=== PATIENT | female | born 1960 | race Caucasian/White ===

== ENCOUNTER 2019-07-08 12:22 | Emergency (ER) | payer OTHER ==
[~2019-07-08] VITALS: Ht 165.1 cm; Wt 83.9 kg
[~2019-07-08 12:22] MED LIST: BACTRIM DS TAB1 EACH PO; CEPHALEXIN 500500 M3; LISINOPRIL-HCT1 EAC2; SYNTHROID50 MCG PO; VICODIN 5-5001 EACH PO
[2019-07-08] MEDS ORDERED: BLOOD PRESSURE (12:37)
[2019-07-08] MEDS ORDERED: MOBIC15 MG PO (14:40)
[2019-07-08 14:57] VITALS: BP 150/84
== END 2019-07-08 14:58 | disposition home or self-care (01) ==
LOC: M.ERS 12:22
DX: S46.812A Strain of other muscles, fascia and tendons at shoulder and upper arm level, left arm, initial encounter (principal); I10 Essential (primary) hypertension; E03.9 Hypothyroidism, unspecified; Z88.1 Allergy status to other antibiotic agents; Z88.2 Allergy status to sulfonamides; W10.8XXA Fall (on) (from) other stairs and steps, initial encounter; Y93.89 Activity, other specified; Y92.89 Other specified places as the place of occurrence of the external cause; Y99.8 Other external cause status

== ENCOUNTER → 2019-08-23 | Outpatient (CLI) | payer OTHER ==
[~2019-08-23] MED LIST changes: +BLOOD PRESSURE; +MOBIC15 MG PO
== END ==
LOC: M.MRI 07:21
DX: S40.012A Contusion of left shoulder, initial encounter (principal); S42.292A Other displaced fracture of upper end of left humerus, initial encounter for closed fracture; M19.012 Primary osteoarthritis, left shoulder; R60.9 Edema, unspecified; X58.XXXA Exposure to other specified factors, initial encounter; Y93.89 Activity, other specified; Y92.89 Other specified places as the place of occurrence of the external cause; Y99.8 Other external cause status